=== PATIENT | male | born 1990 | race American Indian/Alaskan Native ===

== ENCOUNTER 2021-10-13 09:58 | Emergency (ER) | payer SELFPAY ==
[2021-10-13 10:07] VITALS: BP 137/88
== END 2021-10-13 16:00 | disposition left against medical advice (07) ==
LOC: ED 09:58
DX: R51.9 Headache, unspecified (principal); M54.9 Dorsalgia, unspecified; Z53.21 Procedure and treatment not carried out due to patient leaving prior to being seen by health care provider; V87.7XXA Person injured in collision between other specified motor vehicles (traffic), initial encounter; Y93.89 Activity, other specified; Y92.488 Other paved roadways as the place of occurrence of the external cause; Y99.8 Other external cause status